=== PATIENT | male | born 1955 | race Caucasian/White ===

== ENCOUNTER 2021-10-06 10:36 | Day surgery (SDC) | payer MEDICARE, MEDICAID, SELFPAY ==
--- NOTE | 2021-10-05 10:44 | P.CONAN_ITS ---
Documented by User: Ivette Singer NP 10/05/21 10:54 HPI - Anesthesia Eval Consult details Narrative: 66yo M for Colonoscopy [facility] resident - awaiting more info [facility] Past Medical History Medical History CAD (coronary artery disease) COVID-19 virus infection CVA (cerebral vascular accident) Diabetes mellitus, type 2 Diverticulitis GERD (gastroesophageal reflux disease) Glaucoma Hyperlipidemia Hypertension Memory deficit Myocardial infarct Skin cancer Unsteady gait Surgical History Surgical History (Updated 10/06/21 @ 12:02 by Cecille Aguilera MD) H/O brain surgery History of colonoscopy History of tonsillectomy Social History Social History Housing: Intermediate Patient Tobacco Use Status: Never used Tobacco Use of substances other than those prescribed or required for medical reasons: No Are you DNR?: Yes Advance Directives: No Advance Directives Information Provided: Yes Current occupational status: disabled Meds Allergies Allergy/AdvReac Type Severity Reaction Status Date / Time Penicillins [PENICILLINS] Allergy Intermediate UNKNOWN Verified 10/06/21 05:53 penicillin G Allergy Unknown Unknown Verified 10/06/21 05:53 morphine [MORPHINE] AdvReac Mild NAUSEA & Verified 10/06/21 05:53 VOMITING Home Medications Medication Instructions Recorded Confirmed Last Taken Type acetaminophen 325 mg capsule 325 mg PO Q6-8H PRN 10/05/21 10/05/21 Unknown History aspirin 81 mg tablet,delayed 81 mg PO DAILY 10/05/21 10/05/21 10/02/21 History release atenolol 50 mg tablet 1 tab PO DAILY 10/05/21 10/05/21 10/06/21 History calcium carbonate 500 mg calcium 500 mg PO DAILY 10/05/21 10/05/21 Unknown History (1,250 mg) chewable tablet dulaglutide 1.5 mg/0.5 mL 1.5 mg SUBCUT DAILY 10/05/21 10/05/21 Unknown History subcutaneous pen injector (Trulicity) esomeprazole magnesium 40 mg 1 cap PO DAILY 10/05/21 10/05/21 Unknown History capsule,delayed release famotidine 20 mg tablet 1 tab PO BID 10/05/21 10/05/21 Unknown History glipizide 10 mg tablet 1 tab PO BID 10/05/21 10/05/21 Unknown History hydroxyzine HCl 25 mg tablet 1 tab PO TID 10/05/21 10/05/21 Unknown History lisinopril 5 mg tablet 1 tab PO DAILY 10/05/21 10/05/21 10/06/21 History melatonin 3 mg tablet 3 mg PO BEDTIME PRN 10/05/21 10/05/21 Unknown History metformin 500 mg tablet,extended 2 tab PO BID 10/05/21 10/05/21 Unknown History release 24 hr metronidazole 0.75 % topical gel 1 appl TOPICAL DAILY 10/05/21 10/05/21 Unknown History multivitamin 1 tab PO DAILY 10/05/21 10/05/21 Unknown History pravastatin 20 mg tablet 1 tab PO DAILY 10/05/21 10/05/21 Unknown History sitagliptin 100 mg tablet (Januvia) 1 tab PO DAILY 10/05/21 10/05/21 Unknown History tamsulosin 0.4 mg capsule 1 cap PO DAILY 10/05/21 10/05/21 Unknown History tramadol 50 mg tablet 1 tab PO TID PRN 10/05/21 10/05/21 Unknown History Exam Exam Date and Time: October 05, 2021 1044 Documented by User: Cecille Aguilera MD 10/06/21 12:07 PMFSH Active Problems Active Problems: Problems with short term memory. Signs own permits Denies recent chest pain Past Medical History Medical History CAD (coronary artery disease) COVID-19 virus infection CVA (cerebral vascular accident) Diabetes mellitus, type 2 Diverticulitis GERD (gastroesophageal reflux disease) Glaucoma Hyperlipidemia Hypertension Memory deficit Myocardial infarct Skin cancer Unsteady gait Family History Family history of problems with anesthesia: No Surgical History Surgical History (Updated 10/06/21 @ 12:02 by Cecille Aguilera MD) H/O brain surgery History of colonoscopy History of tonsillectomy History of Problems with Anesthesia: No Social History Social History Housing: Intermediate Patient Tobacco Use Status: Never used Tobacco Use of substances other than those prescribed or required for medical reasons: No Are you DNR?: Yes Advance Directives: No Advance Directives Information Provided: Yes Current occupational status: disabled Meds Allergies Allergy/AdvReac Type Severity Reaction Status Date / Time Penicillins [PENICILLINS] Allergy Intermediate UNKNOWN Verified 10/06/21 05:53 penicillin G Allergy Unknown Unknown Verified 10/06/21 05:53 morphine [MORPHINE] AdvReac Mild NAUSEA & Verified 10/06/21 05:53 VOMITING Home Medications Medication Instructions Recorded Confirmed Last Taken Type acetaminophen 325 mg capsule 325 mg PO Q6-8H PRN 10/05/21 10/05/21 Unknown History aspirin 81 mg tablet,delayed 81 mg PO DAILY 10/05/21 10/05/21 10/02/21 History release atenolol 50 mg tablet 1 tab PO DAILY 10/05/21 10/05/21 10/06/21 History calcium carbonate 500 mg calcium 500 mg PO DAILY 10/05/21 10/05/21 Unknown History (1,250 mg) chewable tablet dulaglutide 1.5 mg/0.5 mL 1.5 mg SUBCUT DAILY 10/05/21 10/05/21 Unknown History subcutaneous pen injector (Trulicity) esomeprazole magnesium 40 mg 1 cap PO DAILY 10/05/21 10/05/21 Unknown History capsule,delayed release famotidine 20 mg tablet 1 tab PO BID 10/05/21 10/05/21 Unknown History glipizide 10 mg tablet 1 tab PO BID 10/05/21 10/05/21 Unknown History hydroxyzine HCl 25 mg tablet 1 tab PO TID 10/05/21 10/05/21 Unknown History lisinopril 5 mg tablet 1 tab PO DAILY 10/05/21 10/05/21 10/06/21 History melatonin 3 mg tablet 3 mg PO BEDTIME PRN 10/05/21 10/05/21 Unknown History metformin 500 mg tablet,extended 2 tab PO BID 10/05/21 10/05/21 Unknown History release 24 hr metronidazole 0.75 % topical gel 1 appl TOPICAL DAILY 10/05/21 10/05/21 Unknown History multivitamin 1 tab PO DAILY 10/05/21 10/05/21 Unknown History pravastatin 20 mg tablet 1 tab PO DAILY 10/05/21 10/05/21 Unknown History sitagliptin 100 mg tablet (Januvia) 1 tab PO DAILY 10/05/21 10/05/21 Unknown History tamsulosin 0.4 mg capsule 1 cap PO DAILY 10/05/21 10/05/21 Unknown History tramadol 50 mg tablet 1 tab PO TID PRN 10/05/21 10/05/21 Unknown History Exam Height,Weight and Vital Signs: Height 5 ft 9 in Weight 95.254 kg Vital Signs Temp Pulse Resp BP Pulse Ox 10/06/21 10:44 97.5 F 73 18 125/79 95 Pertinent Lab Results Pertinent Lab Results: Lab Results 10/06/21 Range/Units 10:48 POC Glucose 146 H (60-115) mg/dL Airway Mallampati Class: III TM Dist: >3cm Neck ROM: Full Loose/Missing/Broken Teeth: Yes (Some broken) Heart: RRR Lungs: CTAB Assessment and Plan Assessment Anesthesia Assessment: Anesthesia Plan Discussed and Chart Reviewed Final Anesthetic Review Family History of Problems with Anesthesia: No History of Problems with Anesthesia: No NPO: Yes ASA Class: III Final Preanesthetic Review: No Changes in Pt Med Stat, Meds/Allgs Chart Reviewed, Consent Obtained/Reviewed, Anes Risks/Benef Reviewed and DNR Form (If Appl.) (Patient does not want to be resuscitated in case of cardiac arrest) Patient Risk: Intermediate Procedure Risk: Low Assessment/Block/Sedation in SS: Assess/Block/Sedation-SS Anesthetic Plan Anesthetic Plan: MAC: Disposition: Standard PACU
[2021-10-06 10:44] VITALS: BP 125/79; PULSE 73; RESP 18; TEMP 36.4; O2SAT 95; BMI 31.0
[2021-10-06 11:00] LABS: Glucose, Whole Blood 146 mg/dL (60-115)
--- NOTE | 2021-10-06 11:03 | PC.NURSE ---
spoke to manager truck pt took entire prep and all clear liquids yesterday two fleets given for liquid brown stool
--- NOTE | 2021-10-06 11:05 | PC.NURSE ---
results from fleets x2 tanish to yellow liquid
--- NOTE | 2021-10-06 11:19 | MHC.SHP ---
Pre-Procedural Eval Section A Date of Service: 10/06/21 The patient is an INPATIENT: No Changes since office visit: No Cold of Flu in the past 2 weeks, No New Medical Problems, No Changes in Medication and No Patient answered all questions The History & Physical has been completed within 30 days and I have reviewed it.: Yes Section B Chief Complaint: screening Allergies: Allergies Allergy/AdvReac Type Severity Reaction Status Date / Time Penicillins [PENICILLINS] Allergy Intermediate UNKNOWN Verified 10/06/21 05:53 penicillin G Allergy Unknown Unknown Verified 10/06/21 05:53 morphine [MORPHINE] AdvReac Mild NAUSEA & Verified 10/06/21 05:53 VOMITING Plan I have reviewed the history and physical and performed a pertinent physical examination on my patient. No changes have occurred unless specified.
[2021-10-06] MEDS: Lactated Ringers 1,000 ML 100 ML IVCONT (11:24)
[2021-10-06 12:06] VITALS: BP 90/49; PULSE 81; RESP 18; TEMP 36.2; O2SAT 97
--- NOTE | 2021-10-06 12:06 | PM.OP ---
Brief Operative Note Date of Service: 10/06/21 Pre-op diagnosis: screening Post-op diagnosis: same (colon polyps) Procedure: colonoscopy Surgeon: Davon Garza Anesthesia: MAC Was an Music Education Director used for this Procedure?: No Estimated blood loss (mL): 5 Pathology: other (polyps x3) Condition: stable Disposition: PACU
[2021-10-06 12:21] VITALS: BP 127/85; PULSE 72; RESP 18; TEMP 36.2; O2SAT 96
--- NOTE | 2021-10-06 22:32 | OP_ITS ---
SURGEON: Davon Garza MD INDICATIONS: Colon cancer screening. PREOPERATIVE DIAGNOSIS: POSTOPERATIVE DIAGNOSIS: PROCEDURE PERFORMED: Colonoscopy to the terminal ileum with snare polypectomy. ESTIMATED BLOOD LOSS: COMPLICATIONS: ANESTHESIA: Medication is monitored anesthesia care. ASSISTANTS: SPECIMENS: DESCRIPTION OF PROCEDURE: History and physical performed. The risks and benefits of the procedure were explained to the patient. Informed consent was obtained. The patient was placed in the left lateral decubitus position. A digital rectal exam was performed and was found to be normal. The Olympus pediatric video colonoscope was introduced into the rectum and advanced to the cecum without difficulty. The cecum was identified by transillumination, palpation, and identification of ileocecal valve. Abdominal wall pressure was used to assist in advancement of the scope due to looping in the sigmoid. Examination was performed. The scope was removed. He tolerated the procedure well and was taken to the recovery area in stable condition. FINDINGS: The terminal ileum was not examined. Views of the cecum, right colon, and sigmoid were limited via large amount of liquid stool, formed stool, and undigested food. This was washed and suctioned as best possible, but small polyps may have been missed. Three polyps were identified and removed with a snare, the largest measuring 10 mm. These were located at 80 cm, 20 cm, and in the rectum. Retroflexed examination showed some small internal hemorrhoids. There was moderate to severe sigmoid diverticulosis. IMPRESSION: Colon polyps. RECOMMENDATION: Follow up the biopsy results. MD RAJINDER Encinas/JESSE / [id number]
== END 2021-10-06 13:05 | disposition home or self-care (01) ==
PROVIDERS: Visit Provider Internal Medicine Gastroenterology
PROC: 0DJD8ZZ Inspection of Lower Intestinal Tract, Via Natural or Artificial Opening Endoscopic (ICD-10-PCS; CPT 45378; principal; 2021-10-06 11:40)
DX: Z12.11 Encounter for screening for malignant neoplasm of colon (principal); D12.4 Benign neoplasm of descending colon; D12.8 Benign neoplasm of rectum; K63.5 Polyp of colon; K57.30 Diverticulosis of large intestine without perforation or abscess without bleeding; K64.8 Other hemorrhoids; I25.10 Atherosclerotic heart disease of native coronary artery without angina pectoris; I69.911 Memory deficit following unspecified cerebrovascular disease; I10 Essential (primary) hypertension; I25.2 Old myocardial infarction; F10.11 Alcohol abuse, in remission; E11.9 Type 2 diabetes mellitus without complications; Z79.84 Long term (current) use of oral hypoglycemic drugs; Z79.82 Long term (current) use of aspirin; Z79.899 Other long term (current) drug therapy; Z85.828 Personal history of other malignant neoplasm of skin; Z86.16 Personal history of COVID-19
CPT/HCPCS: 45385; 82947; 88305

== ENCOUNTER 2023-05-17 10:16 | Emergency (ER) | payer MEDICARE, MEDICAID, SELFPAY ==
[2023-05-17 10:25] VITALS: BP 158/82; PULSE 64; O2SAT 99; BMI 31.1
--- NOTE | 2023-05-17 10:38 | PC.NURSE ---
pt a&ox3, vss and up to date, nsr on the bus driver/monitor. pt comes in from [facility] for nonradiating 02/14 epigastric pain that started about a half an hour ago/prior to arrival. pt denies n/v/d at this time. tech bedside performing ekg. respirations even and nonlabored. call navas placed within reach.
[2023-05-17 12:19] LABS: Alanine Aminotransferase 53 U/L (0-40); Albumin Level 4.2 g/dL (3.5-5.0); Alkaline Phosphatase 55 U/L (39-117); Anion Gap 14 (12-20); Aspartate Amino Transferase 66 U/L (5-37); Blood Urea Nitrogen 12 mg/dL (9-16); Calcium 9.6 mg/dL (8.4-10.2); Carbon Dioxide 27 mmol/L (22-29); Chloride 105 mmol/L (96-108); Creatinine Clr Calc Pharmacy 116.9; Estimated Glomerular Filt Rate > 60; Glucose Random 170 mg/dL (60-115); Lipase 118 U/L (8-78); Potassium 5.2 mmol/L (3.3-5.1); Sodium 141 mmol/L (135-145); Total Protein 6.5 g/dL (6.5-8.0)
[2023-05-17 12:57] VITALS: BP 137/84; PULSE 72; RESP 14; O2SAT 100
--- NOTE | 2023-05-17 13:07 | ED.ABDPAIN ---
HPI - Abdominal Pain General Chief Complaint: Abdominal Pain Stated Complaint: abd pain Time Seen by Provider: 05/17/23 10:34 History of Present Illness HPI narrative: The patient is a 67-year-old male with a long history of alcohol abuse in the past. Been in rehab facility the last 4-5 years have not drink any alcohol. Presents today with having epigastric pain that is burning in nature been ongoing for the last 2-3 hours. Not associated with any chest pain or shortness of breath no diaphoresis. Positive bowel movement which has been somewhat hard. There has been no previous history of abdominal surgery. No fever no chills. No coughing or congestion or upper respiratory symptoms. Patient has a history of diabetes, hypertension, hypercholesterolemia. There is no radiation of the pain. Related Data Home Medications Medication Instructions Recorded Confirmed acetaminophen 325 mg capsule 325 mg PO Q6-8H PRN Pain 10/05/21 10/05/21 aspirin 81 mg tablet,delayed 81 mg PO DAILY 10/05/21 10/05/21 release atenolol 50 mg tablet 1 tab PO DAILY 10/05/21 10/05/21 calcium carbonate 500 mg calcium 500 mg PO DAILY 10/05/21 10/05/21 (1,250 mg) chewable tablet dulaglutide 1.5 mg/0.5 mL 1.5 mg subcut DAILY 10/05/21 10/05/21 subcutaneous pen injector (Trulicity) esomeprazole magnesium 40 mg 1 cap PO DAILY 10/05/21 10/05/21 capsule,delayed release famotidine 20 mg tablet 1 tab PO BID 10/05/21 10/05/21 glipizide 10 mg tablet 1 tab PO BID 10/05/21 10/05/21 hydroxyzine HCl 25 mg tablet 1 tab PO TID 10/05/21 10/05/21 lisinopril 5 mg tablet 1 tab PO DAILY 10/05/21 10/05/21 melatonin 3 mg tablet 3 mg PO BEDTIME PRN Sleep 10/05/21 10/05/21 metformin 500 mg tablet,extended 2 tab PO BID 10/05/21 10/05/21 release 24 hr metronidazole 0.75 % topical gel 1 appl topical DAILY 10/05/21 10/05/21 multivitamin 1 tab PO DAILY 10/05/21 10/05/21 pravastatin 20 mg tablet 1 tab PO DAILY 10/05/21 10/05/21 sitagliptin phosphate 100 mg 1 tab PO DAILY 10/05/21 10/05/21 tablet (Januvia) tamsulosin 0.4 mg capsule 1 cap PO DAILY 10/05/21 10/05/21 tramadol 50 mg tablet 1 tab PO TID PRN Pain 10/05/21 10/05/21 latanoprost 0.005 % eye drops 1 drp ophthalmic (eye) BEDTIME 10/06/21 10/06/21 Allergies Allergy/AdvReac Type Severity Reaction Status Date / Time Penicillins [PENICILLINS] Allergy Intermediate UNKNOWN Verified 05/17/23 10:24 penicillin G Allergy Unknown Unknown Verified 05/17/23 10:24 morphine [MORPHINE] AdvReac Mild NAUSEA & Verified 05/17/23 10:24 VOMITING Review of Systems Review of Systems Positive epigastric pain Yes all other systems are reviewed and are negative [facility] Past Medical History Attestation statement: The following information was validated with the patient. Medical History COVID-19 virus infection Glaucoma GERD (gastroesophageal reflux disease) Skin cancer Memory deficit CVA (cerebral vascular accident) Unsteady gait Hypertension Hyperlipidemia Diverticulitis Myocardial infarct CAD (coronary artery disease) Diabetes mellitus, type 2 Surgical History History of colonoscopy History of tonsillectomy H/O brain surgery Social History Social History Housing: Penitentiary Unable to assess alcohol history related to: Unknown Patient Tobacco Use Status: Never used Tobacco Smoked in Last 30 Days: No Use of substances other than those prescribed or required for medical reasons: No Advance Directives: Yes Advance Directives on File: Yes Advance Directives Date on File: 05/17/23 Current occupational status: disabled Physical Exam ED Vital Signs: Vital Signs - 24 hr 05/17/23 12:57 05/17/23 14:00 05/17/23 17:37 Temperature 97.5 F 97.7 F Pulse Rate 72 90 64 Respiratory Rate 14 18 16 Blood Pressure 137/84 127/77 131/76 Pulse Oximetry 100 96 95 Oxygen Delivery Method Room Air Room Air Room Air BMI result Body Mass Index 31.1 Appearance: Alert. Oriented X3. No acute distress. Eyes: Pupils equal, round and reactive to light. ENT: Pharynx normal. Neck: Normal inspection. Neck supple. No lymph nodes noted. No crepitus CVS: Normal heart rate and rhythm. Pulses normal. Normal S1 and S2 Respiratory: No respiratory distress. Breath sounds normal. No Wheezing. No rales Abdomen: Soft, mild epigastric pain no rebound or guarding. No rigidity. No distention. good BS x4 Skin: Skin warm and dry. Normal skin color. Normal skin turgor. Extremities: No lower extremity edema. Neurovascular intact to all extremities. No Lacerations. No Rash Neuro: Oriented X 3. No motor deficit. No sensory deficit. Moving all extermities. No slurred speech Medical Decision Making Medical Decision Making MDM Narrative: Patient LFTs minimally elevated. White count is 11.3. Ultrasound showed a possible cholecystitis with gallbladder wall thickening positive gallstone. Small amount of pericholecystic fluid. The same finding was also noted on the CT scan. I reviewed radiology's reading of the CT scan. The case was discussed with surgery on-call. Hazel patient case beyond the capability of [facility] patient has a significant hiatal hernia that the surgeon felt needs to be corrected at the same time. Case was discussed with patient's power of abnormal psychology teacher devin Velez with transfer to [facility]. Discussed the case with [facility] unfortunately they were closed. Discussed the case with [facility] unfortunately there also foci. Currently awaiting [place] decision on accepting patient. Antibiotic was started. In stable condition. Family and patient aware the risk and benefit of transfer. Case discussed with [facility]. Excepted patient at [facility]. A copy of the CT scan and ultrasound was made for patient. Dr. Rico excepted patient to the emergency department. Spoke with Dr. Michael the surgeon at [facility]. Currently in stable condition awaiting transfer Differential Diagnosis Cholecystitis Lab Data 05/17/23 11:48 05/17/23 11:48 Labs: Lab Results 05/17/23 05/17/23 Range/Units 11:48 15:15 WBC 11.3 H (4.8-10.8) X10*3/uL RBC 4.80 (4.60-5.80) X10*6/uL Hgb 14.6 (14.0-18.0) g/dl Hct 43.0 (42.0-52.0) % MCV 89.6 (80.0-98.0) fL MCH 30.4 (27.0-33.0) pg MCHC 34.0 (31.0-36.0) g/dl RDW 12.6 (11.0-16.0) % Plt Count 225 (160-400) X10*3/uL MPV 8.5 L (9.4-12.4) fL Immature Gran % (Auto) 0.4 (0.0-0.4) % Neut % (Auto) 70.4 (45-73) % Lymph % (Auto) 18.7 L (20-40) % [place] % (Auto) 7.4 (2-11) % Eos % (Auto) 2.8 (0-4) % Baso % (Auto) 0.3 (0-2) % Lymph # (Auto) 2.1 (1.2-4.9) X10*3/uL [place] # (Auto) 0.8 (0.1-1.2) X10*3/uL Eos # (Auto) 0.3 (0.0-0.4) X10*3/uL Baso # (Auto) 0.0 (0.0-0.2) X10*3/uL Abs Immat Gran (auto) 0.04 H (0.00-0.03) X10*3/uL Absolute Neuts (auto) 7.9 (2.0-8.3) x10*3/uL Absolute Nucleated RBC 0.000 (0.0-0.012) X10*3/uL Nucleated RBC % (auto) 0.0 (0.0-0.2) /100WBC PT 11.0 L (11.1-13.3) SEC INR 0.9 (0.9-1.1) Sodium 141 (135-145) mmol/L Potassium 5.2 H (3.3-5.1) mmol/L Chloride 105 (96-108) mmol/L Carbon Dioxide 27 (22-29) mmol/L Anion Gap 14 (12-20) BUN 12 (9-16) mg/dL Creatinine 0.74 (0.5-1.4) mg/dL Estim Creat Clear Calc 116.9 Estimated GFR > 60 Random Glucose 170 H (60-115) mg/dL Calcium 9.6 (8.4-10.2) mg/dL Total Bilirubin 1.0 (0.0-1.0) mg/dL AST 66 H (5-37) U/L ALT 53 H (0-40) U/L Alkaline Phosphatase 55 (39-117) U/L Troponin I High Sens < 2.7 (<3.5-35.0) ng/L Total Protein 6.5 (6.5-8.0) g/dL Albumin 4.2 (3.5-5.0) g/dL Lipase 118 H (8-78) U/L Urine Color Yellow Urine Appearance Clear Urine pH 7.0 (5.0-9.0) Ur Specific [place] 1.025 (1.005-1.025) Urine Protein 30 (1+) H (Neg-Trace) mg/dL Urine Glucose (UA) Negative (Negative) mg/dL Urine Ketones Trace (Negative) mg/dL Urine Blood Negative (Negative) Urine Nitrite Negative (Negative) Ur Leukocyte Esterase Small (1+) H (Negative) Urine RBC 0-2 (0-2) /HPF Urine WBC 6-10 H (0-5) /HPF Ur Squamous Epith Cells 0-2 (0-2) /HPF Urine Bacteria None Seen (None Seen) Hyaline Casts 0-2 (0-2) /LPF Medications Administered Discontinued Medications Generic Name Dose Route Start Last Admin Trade Name Freq PRN Reason Stop Dose Admin Al Hydroxide/Mg Hydroxide 30 ml 05/17/23 13:05 05/17/23 14:31 Magnesium Hydrox/Alum Hydrox 30 Ml Oral.Susp PO 05/17/23 13:06 30 ml ONCE ONE Administration Metronidazole 500 mg in 100 mls @ 100 mls/hr 05/17/23 16:34 05/17/23 18:26 Flagyl IV 05/17/23 17:33 Infused ONCE ONE Infusion Ceftriaxone Sodium 1 gm/ 50 mls @ 100 mls/hr 05/17/23 18:30 05/17/23 19:23 Sodium Chloride IV 05/17/23 18:59 Infused ONCE ONE Infusion Iohexol 85 ml 05/17/23 15:37 05/17/23 15:38 Iohexol 350 Mg/Ml 100 Ml Infus..Btl IV 05/17/23 15:38 85 ml ONCE ONE Administration Lorazepam 1 mg 05/17/23 13:53 05/17/23 14:32 Lorazepam 2 Mg/Ml Vial IVPUSH 05/17/23 13:54 1 mg ONCE ONE Administration Critical Care Time Critical Care Time Critical Care Time: Yes Total Critical Care Time: 40 Attestation: I have personally provided 40 minutes of critical care time exclusive of time spent on separately billable procedures. Time includes review of lab data, radiology results, discussion with consultants, and monitoring for potential decompensation. Interventions were performed as documented above Discharge Plan Discharge Clinical Impression: Cholecystitis, acute Patient [facility]position: [facility] Transfer Details: going to [facility] Prescriptions: No Action multivitamin Tablet 1 tab PO DAILY glipizide 10 mg tablet 1 tab PO BID melatonin 3 mg Tablet 3 mg PO BEDTIME PRN (Reason: Sleep) aspirin 81 mg Tablet,Delayed Release (Dr/Ec) 81 mg PO DAILY Hold Instructions: Resume on 10/13/21. tramadol 50 mg tablet 1 tab PO TID PRN (Reason: Pain) famotidine 20 mg tablet 1 tab PO BID tamsulosin 0.4 mg capsule 1 cap PO DAILY esomeprazole magnesium 40 mg capsule,delayed release(DR/EC) 1 cap PO DAILY hydroxyzine HCl 25 mg tablet 1 tab PO TID calcium carbonate 500 mg calcium (1,250 mg) Tablet,Chewable 500 mg PO DAILY pravastatin 20 mg tablet 1 tab PO DAILY lisinopril 5 mg tablet 1 tab PO DAILY metformin 500 mg tablet extended release 24 hr 2 tab PO BID metronidazole 0.75 % gel 1 appl topical DAILY atenolol 50 mg tablet 1 tab PO DAILY acetaminophen 325 mg Capsule 325 mg PO Q6-8H PRN (Reason: Pain) Januvia 100 mg tablet 1 tab PO DAILY Trulicity 1.5 mg/0.5 mL pen injector 1.5 mg subcut DAILY latanoprost 0.005 % drops 1 drp ophthalmic (eye) BEDTIME
[2023-05-17 14:00] VITALS: BP 127/77; PULSE 90; RESP 18; TEMP 36.4; O2SAT 96
--- NOTE | 2023-05-17 14:50 | PC.NURSE ---
medication administered per provider order. ultrasound bedside.
--- NOTE | 2023-05-17 15:07 | PC.NURSE ---
brought in by ambulance after family member called ems d/t pt not acting right/eating for a week. upon arrival, pt was found in sinus eryn at 40 beats per min and 6 respirations per min. ems placed I&O in right guevara. 0.5mg of atropine administered by ems - heart rate increased to 60. another 0.5mg of atropine administered by ems - no pulse noted so cpr was initiated. 500cc of ground coffee emesis was suctioned while en route to ED. 2 rounds of epi also administered. 1055 - pt brought in by ambulance 1056 - tube placed by Dr. Cornejo - 7 / tube, 23 at lip 1058 - 20g IV placed in right AC 1059 - pulse check - compressions resumed 1100 - 1mg epi 1101 - pulse check - compressions resumed 1103 - pulse check - pupils fixed and dilated - compressions resumed 1104 - 1mg epi 1105 - pulse check - PEA - compressions resumed 1107 - pulse check - pulse felt in right femoral - 87bpm 1110 - BP = 99/81, HR = 87, end tidal = 23 1111 - ekg performed, documented and seen by provider 1113 - 80mg protonix administered via IV in right AC
--- NOTE | 2023-05-17 15:24 | PC.NURSE ---
pt currently being transferred to CT.
--- NOTE | 2023-05-17 15:40 | PC.NURSE ---
pt returned from CT. resting comfortably and in no apparent distress at this time. respirations even and unlabored. Karuna GUERRERO from [facility] called and asked about status update on pt - verbalized to [facility] member that pt had just returned from CT and that results were not yet available at this time.
[2023-05-17 17:37] VITALS: BP 131/76; PULSE 64; RESP 16; TEMP 36.5; O2SAT 95
--- NOTE | 2023-05-17 18:54 | PC.NURSE ---
medication administered per provider order.
--- NOTE | 2023-05-17 19:43 | PC.NURSE ---
pt requesting food at this time - this RN notified that he is NPO at the moment d/t potential surgery from provider dx. pt aware of plan of care at this time.
[2023-05-17 23:38] VITALS: BP 144/81; PULSE 67; RESP 20; TEMP 36.5; O2SAT 95
== END 2023-05-18 01:13 | disposition short-term general hospital (02) ==
PROVIDERS: Student in an Organized Health Care Education/Training Program; Emergency Provider Emergency Medicine Emergency Medical Services; PCP Hospitalist
DX: K81.0 Acute cholecystitis (principal); R10.13 Epigastric pain; I25.10 Atherosclerotic heart disease of native coronary artery without angina pectoris; R07.89 Other chest pain; I44.0 Atrioventricular block, first degree; R10.11 Right upper quadrant pain; Z79.899 Other long term (current) drug therapy
CPT/HCPCS: 36415; 74177; 76705; 80053; 81001; 83690; 84484; 85025; 85610; 87086; 93005; 96365; 96367; 96375; 96376; 99285; J0696; J2060; Q9967

== ENCOUNTER 2024-12-04 08:34 | Day surgery (SDC) | payer MEDICARE, MEDICAID, SELFPAY ==
[2024-11-29 08:39] VITALS: BMI 31.4
--- OUTSIDE RECORDS SUMMARY | 2024-12-03 18:07 | XMS_ITS | Encounter Summary ---
[facility] Organization [facility] [address] [place] [address] Care Team Providers Care Sales Assistant Entertainment And Media Name Role Phone Frantz Chapman MD Primary Care Provider [phone] Encounter Details Date Type Department Care Team (Late st Contact Info) Description 07/20/2024 Lab Requisition [facility] - Main Lab [address] [facility] [place] [address] Frantz Chapman MD [address] [place] [address] [address] [place], [place] Other extermination inspector (current) drug therapy; Unspecified intracranial injury without loss of consciousness, sequela (CMS/HCC V24) Social History Tobacco Use Types Packs/Day Years Used Date Smoking Tobacco: Never Assessed Sex and Gender Information Value Date Recorded Sex Assigned at Not on file Legal Sex Male 9:33 AM EST Gender Identity Not on file Sexual Orientation Not on file documented as of this encounter Plan of Treatment Not on file documented as of this encounter Procedures Procedure Name Priority Date/Time Associated Diagnosis Comments HEMOGLOBIN A1C Routine 07/20/2024 7:05 AM EST Unspecified intracranial injury without loss of consciousness, sequela (CMS/HCC) Other extermination inspector (current) drug therapy documented in this encounter Results * (ABNORMAL) Hemoglobin A1c (07/20/2024 7:05 AM EST) Hemoglobin A1C 8.0(H) <6.5 % LAB CHEMISTRY METHOD 07/20/2024 11:01 AM EST [facility] Mean Bld Glu Estim. 183 mg/dL LAB CHEMISTRY METHOD 07/20/2024 11:01 AM EST [facility] Blood Venous blood specimen / Unknown 07/20/2024 7:05 AM EST 07/20/2024 8:09 AM EST Frantz Chapman MD LAB BLOOD ORDERABLES Final Resul t [facility] ([facility]) [facility] [address] [place] [address], documented in this encounter Visit Diagnoses Diagnosis Other senior living (current) drug therapy Unspecified intracranial injury without loss of consciousness, sequela (CMS/HCC V24) documented in this encounter Care Teams Sales Assistant Entertainment And Media Relationship Specialty Start Date End Date Frantz Chapman MD [address] [place] [address] Dr [address] [place], [place] PCP - General Internal Medicine 10/19/24 documented as of this encounter
--- OUTSIDE RECORDS SUMMARY | 2024-12-03 18:07 | XMS_ITS | Clinical Summary ---
Author Organization 299 [facility] Address [address] [place] [address] Phone Care Team Providers Care Manager Heavy Equipment Name Role Phone Frantz Chapman MD Primary Care Provider [phone] Encounters Date Type Department Care Team Description 10/19/2024 Lab Requisition [facility] - Main Lab 299 [facility] [place] [address] Farntz Chapman MD Unspecified intracranial injury without loss of consciousness, sequela (CMS/HCC V24); Type 2 diabetes mellitus without complications (CMS/HCC V24, CMS/HCC V28); Other long term care social worker (current) drug therapy; Encounter for screening for malignant neoplasm of prostate from Last 3 Months Social History Tobacco Use Types Packs/Day Years Used Date Smoking Tobacco: Never Assessed Sex and Gender Information Value Date Recorded Sex Assigned at Not on file Legal Sex Male 9:33 AM EST Gender Identity Not on file Sexual Orientation Not on file Plan of Treatment Health Maintenance Due Date Last Done Comments Diabetes: Annual GFR (Glomerular Filtration Rate) 1957 Diabetes: Annual Foot Exam 1967 Diabetes: Annual Retina Eye Exam 1967 DTaP,Tdap,and Td Vaccines (1 - Tdap) 1976 Pneumococcal Vaccine: 50+ Years (1 of 2 - PCV) 1976 Zoster Vaccines (1 of 2) 2007 Abdominal Aortic Aneurysm (AAA) Screen 07/11/2022 Cholesterol Screening (Lipid Panel) 07/11/2022 Colorectal Cancer Screening: Colonoscopy 07/11/2022 Depression Screening 07/11/2022 Falls Risk Assessment 07/11/2022 Hepatitis C Screening 07/11/2022 Medicare Annual Wellness Visit 07/11/2022 Social Influencers of Health Screening 07/11/2022 COVID-19 Vaccine ( - 2023-2 5 season) 2024 Diabetes: Annual Urine Albumin-Creatinine Ratio (uACR) 10/25/2024 Influenza Vaccine (Season Ended) 2025 Diabetes: Blood Sugar Contro l Test (HGBA1C) 04/21/2025 10/19/2024, 07/20/2024 RSV Immunization Adult Patients (1 - 1-dose 75+ series) 2032 HIB Vaccines Aged Out No longer eligi ble based on patient's age to complete this topic HPV Vaccines Aged Out No longer eligi ble based on patient's age to complete this topic Hepatitis A Vaccines Aged Out No long er eligible based on patient's age to complete this topic Hepatitis B Vaccines Aged Out No long er eligible based on patient's age to complete this topic IPV Vaccines Aged Out No longer eligi ble based on patient's age to complete this topic MMR Vaccines Aged Out No longer eligi ble based on patient's age to complete this topic Meningococcal ACWY Vaccine Aged Out N o longer eligible based on patient's age to complete this topic Meningococcal B Vaccine Aged Out No l onger eligible based on patient's age to complete this topic RSV Immunization Patients Under 20 months Aged Out No longer eligible b ased on patient's age to complete this topic Varicella Vaccines Aged Out No longer eligible based on patient's age to complete this topic Procedures Procedure Name Priority Date/Time Associated Diagnosis Comments PROSTATE SPECIFIC ANTIGEN DIAGNOSTIC Routine 10/19/2024 6:25 AM EDT Unspecified intracranial injury without loss of consciousness, sequela (CMS/HCC) Type 2 diabetes mellitus without complications (CMS/HCC) Other longterm (current) drug therapy Encounter for screening for malignant neoplasm of prostate THYROID STIMULATING HORMONE Routine 10/19/2024 6:25 AM EDT Unspecified intracranial injury without loss of consciousness, sequela (CMS/HCC) Type 2 diabetes mellitus without complications (CMS/HCC) Other long term care social worker (current) drug therapy Encounter for screening for malignant neoplasm of prostate HEMOGLOBIN A1C Routine 10/19/2024 6:25 AM EDT Unspecified intracranial injury without loss of consciousness, sequela (CMS/HCC) Type 2 diabetes mellitus without complications (CMS/HCC) Other longterm (current) drug therapy Encounter for screening for malignant neoplasm of prostate from Last 3 Months Results * Prostate specific antigen diagnostic (10/19/2024 6:25 AM EDT) PSA 0.88 0.00 - 4.00 ng/mL LAB CHEMISTRY METHOD 10/19/2024 11:[address] [facility] Blood Venous blood specimen / Unknown 10/19/2024 6:25 AM EDT 10/19/2024 7:[address] [facility] - 10/19/2024 11:53 AM EDT The Siemens Advia Voonik.comaur Chemiluminescent Immunoassay is used. Results obtained with different assay methods or kits cannot be used interchangeably. Results cannot be interpreted as absolute evidence of the presence or absence of malignant disease. us Frantz Chapman MD LAB BLOOD ORDERABLES Final Resul t Performing Organization Address [facility]/ZIP Co de Phone Number [facility] [address] [place] [address], [place] [phone] * Thyroid stimulating hormone (10/19/2024 6:25 AM EDT) Pathologist [facility] TSH 3.39 0.40 - 4.00 mcIU/mL LAB CHEMISTRY METHOD 10/19/2024 11:[address] [facility] Blood Venous blood specimen / Unknown 10/19/2024 6:25 AM EDT 10/19/2024 7:01 AM EDT us Frantz Chapman MD LAB BLOOD ORDERABLES Final Resul t Performing Organization Address City/[facility]/ZIP Co de Phone Number [facility] [address] [place] [address], [place] [phone] * (ABNORMAL) Hemoglobin A1c (10/19/2024 6:25 AM EDT) Hemoglobin A1C 8.2(H) <6.5 % LAB CHEMISTRY METHOD 10/19/2024 12:33 PM EDT [facility] Mean Bld Glu Estim. 189 mg/dL LAB CHEMISTRY METHOD 10/19/2024 12:33 PM EDT [facility] ([facility]) [facility] Blood Venous blood specimen / Unknown 10/19/2024 6:25 AM EDT 10/19/2024 7:01 AM EDT us Frantz Chapman MD LAB BLOOD ORDERABLES Final Resul t [facility] ([facility]) [facility] [address] [place] [address], [place] [phone] from Last 3 Months Insurance MEDICARE MEDICAID - [place] Care Teams Manager Heavy Equipment Relationship Specialty Start Date End Date Frantz Chapman MD [address] [facility] [address] [place] PCP - General Internal Medicine 10/19/24
--- OUTSIDE RECORDS SUMMARY | 2024-12-03 18:07 | XMS_ITS ---
[facility] Encounters Encounter Type Encounter Reason Primary Diagnosis Location Date Ambulatory Cholecystitis, unspecified Cholecystitis, unspecified [facility] 05/18/2023 Ambulatory [facility] 05/17/2023 Ambulatory [facility] 05/17/2023 Care Team Organization Name Specialty Phone Email Start Date End [facility] 05/18/2023 10/24/2024 [facility] 05/18/2023 05/18/2023 [facility]
--- OUTSIDE RECORDS SUMMARY | 2024-12-03 18:07 | XMS_ITS | Encounter Summary ---
Author Organization [facility] Address [address] [place] [address] Care Team Providers Care Brush Painter Name Role Phone Frantz Chapman MD Primary Care Provider [phone] Encounter Details Date Type Department Care Team (Late st Contact Info) Description 10/19/2024 Lab Requisition [facility] - Main Lab 299 [facility] [place] [address] Frantz Chapman MD [address] [place] [address] [address] [place], [place] Unspecified intracranial injury without loss of consciousness, sequela (CMS/HCC V24); Type 2 diabetes mellitus without complications (CMS/HCC V24, CMS/HCC V28); Other termite exterminator (current) drug therapy; Encounter for screening for malignant neoplasm of prostate Social History Tobacco Use Types Packs/Day Years [...] 2 diabetes mellitus without complications (CMS/HCC) Other termite exterminator (current) drug therapy Encounter for screening for malignant neoplasm of prostate THYROID STIMULATING HORMONE Routine 10/19/2024 6:25 AM EDT Unspecified intracranial injury without loss of consciousness, sequela (CMS/HCC) Type 2 diabetes mellitus without complications (CMS/HCC) Other jail (current) drug therapy Encounter for screening for malignant neoplasm of prostate HEMOGLOBIN A1C Routine 10/19/2024 6:25 AM EDT Unspecified intracranial injury without loss of consciousness, sequela (CMS/HCC) Type 2 diabetes mellitus without complications (CMS/HCC) Other jail (current) drug therapy Encounter for screening for malignant neoplasm of prostate documented in this encounter Results * Prostate specific antigen diagnostic (10/19/2024 6:25 AM EDT) PSA 0.88 0.00 - 4.00 ng/mL LAB CHEMISTRY METHOD 10/19/2024 11:53 AM EDT [facility] Blood Venous blood specimen / Unknown 10/19/2024 6:25 AM EDT 10/19/2024 7:01 AM EDT Narrative [facility] - 10/19/2024 11:53 AM EDT The Siemens Advia Dealupaaur Chemiluminescent Immunoassay is used. Results obtained with different assay methods or kits cannot be used interchangeably. Results cannot be interpreted as absolute evidence of the presence or absence of malignant disease. us Frantz Chapman MD LAB BLOOD ORDERABLES Final Resul t Performing Organization Address City/[facility]/ZIP Co de Phone Number [facility] [address] [place] [address], [place] [phone] * Thyroid stimulating hormone (10/19/2024 6:25 AM EDT) Pathologist [facility] TSH 3.39 0.40 - 4.00 mcIU/mL LAB CHEMISTRY METHOD 10/19/2024 11:53 AM EDT [facility] Blood Venous blood specimen / Unknown 10/19/2024 6:25 AM EDT 10/19/2024 7:01 AM EDT us Frantz Chapman MD LAB BLOOD ORDERABLES Final Resul t Performing Organization Address City/[facility]/ZIP Co de Phone Number [facility] [address] [place] [address], [place] [phone] * (ABNORMAL) Hemoglobin A1c (10/19/2024 6:25 AM EDT) Hemoglobin A1C 8.2(H) <6.5 % LAB CHEMISTRY METHOD 10/19/2024 12:33 PM EDT [facility] Mean Bld Glu Estim. 189 mg/dL LAB CHEMISTRY METHOD 10/19/2024 12:33 PM EDT [facility] Blood Venous blood specimen / Unknown 10/19/2024 6:25 AM EDT 10/19/2024 7:01 AM EDT us Frantz Chapman MD LAB BLOOD ORDERABLES Final Resul t [facility] [address] [place] [address], documented in this encounter Visit Diagnoses Diagnosis Unspecified intracranial injury without loss of consciousness, sequela (CMS/[facility] V24) Type 2 diabetes mellitus without complications (CMS/HCC V24, CMS/[facility] V28) Other termite exterminator (current) drug therapy Encounter for screening for malignant neoplasm of prostate documented in this encounter Care Teams Brush Painter Relationship Specialty Start Date End Date Frantz Chapman MD [address] [facility] [address] [place] PCP - General Internal Medicine 10/19/24 documented as of this encounter
--- OUTSIDE RECORDS SUMMARY | 2024-12-03 18:07 | XMS_ITS | Clinical Summary ---
Author Organization [facility] Address [address] [place] [address] Care Team Providers Care Seals Engraver Name Role Phone Frantz Chapman Primary Care Provider [phone] Allergies Active Allergy Reactions Criticality Noted Date Comments Morphine Unknown/Patient and Family Unable to Define Medium 05/18/2023 Penicillins Unknown/Patient and Family Unable to Define Medium 05/18/2023 Medications acetaminophen (TYLENOL) 325 MG tablet Take 2 tablets (650 mg total) by mouth 4 times daily (every 6 hours) as needed for mild pain or fever. Active aspirin 81 MG chewable tablet Chew 1 tablet (81 mg total) daily. Active atenolol (TENORMIN) 50 MG tablet Take 1 tablet (50 mg total) by mouth daily. Active bisacodyl (DULCOLAX) 10 MG suppository Insert 1 suppository (10 mg total) into the rectum daily. Active clotrimazole (LOTRIMIN) 1 % cream Apply topically 2 (two) times a day. Active famotidine (PEPCID) 40 MG tablet Take 1 tablet (40 mg total) by mouth nightly. Active sodium phosphates (FLEET) enema Insert into the rectum once. Active tamsulosin (FLOMAX) 0.4 MG capsule Take 1 capsule (0.4 mg total) by mouth daily. Active glipiZIDE (GLUCOTROL) 10 MG tablet Take 1 tablet (10 mg total) by mouth every morning before breakfast. Active glucagon (GLUCAGEN) 1 mg injection Inject 1 mL (1 mg total) under the skin once as needed for low blood sugar. Active chlorhexidine (HIBICLENS) 4 % external liquid Apply topically daily as needed for wound care. Active ibuprofen (MOTRIN) 800 mg tablet Take 1 tablet (800 mg total) by mouth 4 times daily (every 6 hours) as needed for mild pain. Active sitaGLIPtin (JANUVIA) 100 MG tablet Take 1 tablet (100 mg total) by mouth daily. Active latanoprost (XALATAN) 0.005 % ophthalmic solution Administer 1 drop to both eyes nightly. Active loratadine (CLARITIN) 10 MG tablet Take 1 tablet (10 mg total) by mouth daily. Active melatonin 3 MG Tab tablet Take 1 tablet (3 mg total) by mouth nightly. Active metFORMIN (GLUCOPHAGE) 500 MG tablet Take 2 tablets (1,000 mg total) by mouth 2 (two) times a day with meals. Active naloxone (NARCAN) 4 mg/0.1 mL Liquid nasal spray device 1 spray (4 mg total) by Alternating Nares route once. [place] contents (4mg) into one nostril once. May repeat every 2 to 3 minutes in alternating nostrils. Call 911 immediately after use. Active OMEprazole (PriLOSEC) 40 MG capsule Take 1 capsule (40 mg total) by mouth every morning before breakfast. Active Multiple Vitamin (MULTIVITAMIN ADULT PO) Take 1 tablet by mouth daily. Active pravastatin (PRAVACHOL) 20 MG tablet Take 1 tablet (20 mg total) by mouth daily. Active senna (SENOKOT) 8.6 MG Tab tablet Take 2 tablets by mouth daily as needed for constipation. Active dulaglutide (TRULICITY) 1.5 MG/0.5ML prefilled pen injection Inject 1.5 mg under the skin once a week. Active guaiFENesin-dext romethorphan (ROBITUSSIN-DM) 100-10 mg/5 mL liquid Take 10 mL by mouth every 4 (four) hours as needed for cough. Active ascorbic acid (VITAMIN C) 500 MG tablet Take 1 tablet (500 mg total) by mouth daily. Active ondansetron (ZOFRAN) 8 MG tablet Take 1 tablet (8 mg total) by mouth 3 times daily (every 8 hours) as needed for nausea or vomiting. Active Active Problems Problem Noted Date Diagnosed Date Cholecystitis 05/18/2023 Social History Tobacco Use Types Packs/Day Years Used Date Smoking Tobacco: Never Assessed AUDIT-C Answer Date Recorded Q1: How often do you have a drink containing alcohol? Never 05/18/2023 Q2: How many drinks containi ng alcohol do you have on a typical day when you are drinking? Patient does not drink Q3: How often do you have si x or more drinks on one occasion? Never 05/18/2023 Sex and Gender Information Value Date Recorded Sex Assigned at Male 05/18/2023 5:14 AM EDT Legal Sex Male 5:22 PM EDT Gender Identity Male 05/18/2023 5:14 AM EDT Sexual Orientation Choose not to disclose 2022 6:19 AM EDT Last Filed Vital Signs Vital Sign Reading Time Taken Comments Blood Pressure 163/84 05/20/2023 8:02 AM EDT Pulse 80 05/20/2023 8:02 AM EDT Temperature 36.7 ??C (98.1 ??F) 05/20/2023 8:02 AM ED T Respiratory Rate 20 05/20/2023 8:02 AM EDT Oxygen Saturation 96% 05/20/2023 8:02 AM EDT Inhaled Oxygen Concentration - - Weight - - Height - - Body Mass Index - - Plan of Treatment Health Maintenance Due Date Last Done Comments Hepatitis C Virus Screening 1957 DTaP/Tdap/Td Vaccines (1 - Tdap) 1976 Colonoscopy 2002 Pneumococcal Vaccines 50+ (1 of 1 - PCV) 2007 Zoster (Shingles) Vaccine (1 of 2) 2007 Influenza Vaccine 03/08/2024 04/08/2021 COVID-19 Vaccine ( - 2023-2 5 season) 2024 RSV Vaccine 60 years and old er and Patients (1 - 1-dose 75+ series) 2032 Hepatitis B Vaccines Aged Out No long er eligible based on patient's age to complete this topic Insurance MEDICARE PART A & B [facility] Advance Directives * Full Code (Latest Code Status on File) Date Activated Date Inactivated Comments 05/18/2023 4:03 AM Care Teams Seals Engraver Relationship Specialty Start Date End Date Frantz Chapman [address] [place] [address] [place] [address] PCP - General Medicine Hospitalist 05/18/23
[2024-12-04 09:10] VITALS: BP 139/77; PULSE 62; RESP 14; TEMP 36.9; O2SAT 96
--- NOTE | 2024-12-04 09:17 | HO.ANESPROP2 ---
[facility] Past Medical History Medical History (Updated 11/22/24 @ 15:14 by Lima Smith RN) Depression Cannabis abuse Alcohol abuse Resides in senior care facility Glaucoma GERD (gastroesophageal reflux disease) Skin cancer Memory deficit CVA (cerebral vascular accident) Unsteady gait Hypertension Hyperlipidemia Diverticulitis Myocardial infarct CAD (coronary artery disease) Diabetes mellitus, type 2 Family History Family history of problems with anesthesia: No Surgical History Surgical History (Updated 11/22/24 @ 14:38 by Lima Smith RN) History of colonoscopy History of tonsillectomy H/O brain surgery History of Problems with Anesthesia: No Social History Social History Housing: Senior Living Housing Other:: resides at [facility] Are you a primary healthcare associate to a significant other at home: No Do you presently have visiting nurse or other home services: Yes (as above noted) Unable to assess alcohol history related to: Unknown Patient Tobacco Use Status: Never used Tobacco Use of substances other than those prescribed or required for medical reasons: No Spiritual Healthcare Practices: no Synagogue Healthcare Practices: no Cultural Healthcare Practices: no Are you DNR?: Yes Advance Directives: Yes (has HCP & DNR) Advance Directives Information Provided: Yes Advance Directives on File: Yes Advance Directives Date on File: 05/17/23 Poor oral hygiene: No Current occupational status: disabled Meds Allergies Allergy/AdvReac Type Severity Reaction Status Date / Time Penicillins [PENICILLINS] Allergy Unknown Unknown Verified 12/04/24 09:08 morphine [MORPHINE] AdvReac Mild NAUSEA & Verified 12/04/24 09:08 VOMITING Home Medications ?Medication ?Instructions ?Recorded ?Confirmed ?Last Taken ?Type acetaminophen 325 mg capsule 325 mg PO Q6-8H PRN Pain 10/05/21 11/29/24 Unknown History aspirin 81 mg tablet,delayed 81 mg PO DAILY 10/05/21 11/29/24 10/02/21 History release atenolol 50 mg tablet 1 tab PO DAILY 10/05/21 11/29/24 10/06/21 History famotidine 20 mg tablet 1 tab PO BEDTIME 10/05/21 11/29/24 Unknown History glipizide 10 mg tablet 1 tab PO BID 10/05/21 11/29/24 Unknown History melatonin 3 mg tablet 3 mg PO BEDTIME PRN Sleep 10/05/21 11/29/24 Unknown History metformin 500 mg tablet,extended 2 tab PO BID 10/05/21 11/29/24 Unknown History release 24 hr multivitamin 1 tab PO DAILY 10/05/21 11/29/24 Unknown History pravastatin 20 mg tablet 1 tab PO DAILY 10/05/21 11/29/24 Unknown History sitagliptin phosphate 100 mg 1 tab PO DAILY 10/05/21 11/29/24 Unknown History tablet (Januvia) tamsulosin 0.4 mg capsule 1 cap PO DAILY 10/05/21 11/29/24 Unknown History tramadol 50 mg tablet 1 tab PO TID PRN Pain 10/05/21 11/29/24 Unknown History latanoprost 0.005 % eye drops 1 drp ophthalmic (eye) BEDTIME 10/06/21 11/29/24 Unknown History omeprazole 40 mg capsule,delayed 40 mg PO DAILY 11/29/24 11/29/24 Unknown History release Exam Height,Weight and Vital Signs: Height 5 ft 10 in Weight 99.337 kg Last Vital Signs Temp 98.5 F 12/04/24 09:10 Pulse 62 12/04/24 09:10 Resp 14 12/04/24 09:10 BP 139/77 12/04/24 09:10 Pulse Ox 96 12/04/24 09:10 O2 Del Method Room Air 12/04/24 09:10 Airway Mallampati Class: III TM Dist: >3cm Neck ROM: Full Partial: Lower Assessment and Plan Assessment Anesthesia Assessment: Anesthesia Plan Discussed and Chart Reviewed Final Anesthetic Review Family History of Problems with Anesthesia: No History of Problems with Anesthesia: No NPO: Yes ASA Class: III Final Preanesthetic Review: No Changes in Pt Med Stat, Meds/Allgs Chart Reviewed, Consent Obtained/Reviewed and Anes Risks/Benef Reviewed Patient Risk: Intermediate Procedure Risk: Low Anesthetic Plan Anesthetic Plan: TIVA Disposition: Standard PACU
[2024-12-04 09:28] LABS: Glucose, Whole Blood 190 mg/dL (60-115)
--- NOTE | 2024-12-04 09:37 | MHC.SHP ---
Pre-Procedural Eval Section A - 24 Hr Update-Section A only Date of Service: 12/04/24 The patient is an INPATIENT: No Changes since office visit: No Cold of Flu in the past 2 weeks, No New Medical Problems, No Changes in Medication and No Patient answered all questions The patient has been examined within 24 hours of the surgical procedure. The History & Physical has been completed within 30 days and I have reviewed it.: Yes Section B - Complete if H&P > 30 days Chief Complaint: Encounter for screening for malignant neoplasm of Allergies: Allergies Allergy/AdvReac Type Severity Reaction Status Date / Time Penicillins [PENICILLINS] Allergy Unknown Unknown Verified 12/04/24 09:08 morphine [MORPHINE] AdvReac Mild NAUSEA & Verified 12/04/24 09:08 VOMITING Plan I have reviewed the history and physical and performed a pertinent physical examination on my patient. No changes have occurred unless specified. Time Spent With Patient Time: Total time managing care of this patient today ____ minutes.
--- NOTE | 2024-12-04 10:21 | PM.OP ---
Brief Operative Note Date of Service: 12/04/24 Pre-op diagnosis: screening Post-op diagnosis: same Procedure: colonoscopy Surgeon: Davon Garza MD Anesthesia: MAC Was an Oral Surgery Assistant used for this Procedure?: No Estimated blood loss (mL): 0 Pathology: none sent Condition: stable Disposition: PACU
[2024-12-04 10:22] VITALS: BP 104/63; PULSE 62; RESP 12; TEMP 36.3; O2SAT 97
[2024-12-04 10:37] VITALS: BP 126/72; PULSE 58; RESP 16; TEMP 36.3; O2SAT 99
--- NOTE | 2024-12-04 10:38 | OP_ITS ---
DATE OF SERVICE: 12/04/2024 SURGEON: Davon Garza MD INDICATIONS: Colon cancer screening and prior history of adenomatous colon polyps. PREOPERATIVE DIAGNOSIS: POSTOPERATIVE DIAGNOSIS: PROCEDURE PERFORMED: Colonoscopy to the cecum. ESTIMATED BLOOD LOSS: COMPLICATIONS: ANESTHESIA: Monitored anesthesia care. ASSISTANTS: SPECIMENS: DESCRIPTION OF PROCEDURE: A history and physical performed. The risks and benefits of the procedure were explained to the patient and informed consent was obtained. The patient was placed in the left lateral decubitus position. A digital rectal exam was performed and was found to be normal. The Olympus pediatric video colonoscope was introduced into the rectum and advanced to the cecum. The cecum was identified by transillumination, palpation, and identification of ileocecal valve. Examination was performed. The scope was removed. He tolerated the procedure well and was returned to recovery area in stable condition. FINDINGS: The terminal ileum was not examined. The visualized colonic mucosa was within normal limits without evidence of masses or ulcers. There was moderate amount of liquid stool present in the right colon, which limited sensitivity examination for detection of lesions in the cecum and right colon. No polyps were identified. There was moderate sigmoid diverticulosis. Retroflexed examination showed moderate-sized internal hemorrhoids. IMPRESSION: Normal colonoscopy. RECOMMENDATION: 1. Follow up as needed. 2. Repeat colonoscopy is recommended in 5 years for the limitations of today's test. MD RAJINDER Encinas/JESSE / [id number]
== END 2024-12-04 11:03 | disposition home or self-care (01) ==
PROVIDERS: PCP Hospitalist; Visit Provider Internal Medicine Gastroenterology
PROC: 0DJD8ZZ Inspection of Lower Intestinal Tract, Via Natural or Artificial Opening Endoscopic (ICD-10-PCS; CPT 45378; principal; 2024-12-04 09:50)
DX: Z12.11 Encounter for screening for malignant neoplasm of colon (principal); K57.30 Diverticulosis of large intestine without perforation or abscess without bleeding; K64.8 Other hemorrhoids; Z86.0101 Personal history of adenomatous and serrated colon polyps; E11.9 Type 2 diabetes mellitus without complications; I10 Essential (primary) hypertension; E78.5 Hyperlipidemia, unspecified; I25.2 Old myocardial infarction; F12.10 Cannabis abuse, uncomplicated; F10.11 Alcohol abuse, in remission; Z86.73 Personal history of transient ischemic attack (TIA), and cerebral infarction without residual deficits; Z79.84 Long term (current) use of oral hypoglycemic drugs; Z79.899 Other long term (current) drug therapy; Z79.82 Long term (current) use of aspirin; Z79.02 Long term (current) use of antithrombotics/antiplatelets
CPT/HCPCS: G0105; 82947; J2003; J2704